=== PATIENT | female | born 1950 | race Caucasian/White ===

== ENCOUNTER → 2016-12-12 | Outpatient (CLI) | payer OTHER ==
[~2016-12-12] VITALS: Ht 152.4 cm; Wt 77.1 kg
[~2016-12-12] MED LIST: ACETAMINOPHEN325 M1 PO; ADVAIR HFA 115-12 GM INH; AKWA TEARS EYE15 ML OPHTHALMIC; ALBUTEROL INHALER INH; ASPIRIN325 PO; COUMADIN 5 MG TA5 M1 PO; CYCLOBENZAPRINE10 MG PO; DUONEB 2.5-0.5 M3 ML INH; HYDROCODON-ACE1 EACH PO; LEVAQUIN 750 M750 MG PO; LEVOTHYROXIN0.025 MG PO; LEVOTHYROXIN0.075 MG PO; NAPROSYN500 MG PO; PREDNISONE 10 M10 M1 PO; PREDNISONE 20 M20 M1 PO; PROAIR HFA8.5 GM INH; PROZAC 20 MG20 MG PO; TUCKS HEMORRH28.3 GM TOP; ULTRAM 50MG TAB50 MG PO; ZOLOFT25 MG PO
--- NOTE | ~2016-12-12 | S ---
[facility] [place] [address] SURGICAL PATH RPT PROCEDURE Name: MALICK PEARL Room #: REG RONDA JeromeLindsayAnilLindsay#: [id number] Admission: 12/12/16 Date of : 52 Discharge: Report #: [id number] Path Case #: [id number] PATHOLOGY REPORT COLLECTION DATE: 12/12/2016 RECEIVED DATE: 12/12/2016 SUBMITTING PHYS: Dr. Harinder Ramirez OTHER PHYS: Dr. Steff Brenner SPECIMEN(S) RECEIVED: A.Left lung biopsy * * * * * * * * * * * * FINAL DIAGNOSIS: Lung, left lung, biopsy: - MODERATELY DIFFERENTIATED SQUAMOUS CELL CARCINOMA. COMMENT: Immunohistochemical stains are performed: (Block A1) P40 strong nuclear reactivity present within the tumor TTF1 no tumor cells showing nuclear reactivity The immunohistochemical stains support the diagnosis rendered. Co-review: Dr. Ita Melo Findings are telephoned to Dr. Alexsander Galvin' nurse, Ms. Murillo at 1:09 pm on 12/15/16. (IUV:all; d/t: 12/15/2016) PATHOLOGIST: Ana Rosa Neely M.D. REPORT ELECTRONICALLY SIGNED BY: Ana Rosa Neely M.D. DATE/TIME: 12/15/2016 15:03 * * * * * * * * * * * * GROSS PATHOLOGY: The specimen is received in formalin, labeled "[place] Malick" and additionally labeled "left lung biopsy" on the requisition. Received is a 0.5 x 0.4 x 0.2 cm aggregate of blood tinged, white-corrales, rubbery, and irregular soft tissue fragments. The specimen is entirely submitted in cassette A1. (TTL; 12/12/2016) CLINICAL HISTORY: None given INITIAL CPT CODE(S): [facility] [place] [address] SURGICAL PATH RPT PROCEDURE Name: BEREAnilMALICK MITCHELL Room #: REG RONDA Lemus#: [id number] Admission: 12/12/16 Date of : 52 Discharge: Report #: [id number] Path Case #: [id number]; [id number], [id number], [id number] Professional services performed by [facility] at [address] [place] [address] Technical services performed by [facility] at [address] [place] [address], [place] [address]. [facility] [place] [address] PHONE: [phone] DIRECTOR: Amol Mullins M.D. * * * END OF REPORT * * *
[2016-12-12 08:39] VITALS: BP 110/53
[2016-12-12 08:48] LABS: HEMATOCRIT 43.8 % (37.0-47.0); HEMOGLOBIN 14.1 gm/dL (12.0-15.0); MCH 27.6 pg (26.0-34.0); MCHC 32.2 % (28.0-37.0); MCV 85.9 fL (80.0-100.0); RBC 5.09 mil/uL (4.20-5.00); RDW 14.1 % (10.5-14.5); WBC 6.5 thou/uL (4.0-11.0)
[2016-12-12 08:54] LABS: CALCIUM 8.9 mg/dL (8.5-10.1); CREATININE 0.6 mg/dL (0.6-1.3); POTASSIUM 4.3 mmol/L (3.5-5.1)
[2016-12-12 11:51] VITALS: BP 110/53
[2016-12-12 12:15] VITALS: BP 113/57
[2016-12-12 12:30] VITALS: BP 102/40
[2016-12-12 12:45] VITALS: BP 108/42
== END ==
LOC: CAT 07:41
PROVIDERS: Radiology Vascular & Interventional Radiology
DX: C34.12 Malignant neoplasm of upper lobe, left bronchus or lung (principal)

== ENCOUNTER 2017-07-25 16:13 | Inpatient (IN) | payer OTHER ==
[~2017-07-25] VITALS: Ht 154.9 cm; Wt 76.4 kg
--- NOTE | ~2017-07-25 | D ---
[facility] [place] [address] DISCHARGE SUMMARY Name: MALICK PEARL Room #: 453-P ADM IN M.R.#: [id number] Admission: 07/25/17 Attend Phys: Giovani Castro DO Discharge: Date of : 52 Report #: [id number] THIS REPORT FOR: //name// CC: Maria Castro DATE OF SERVICE: 08/02/2017 DATE OF ADMISSION: 07/25/2017 DATE OF DISCHARGE: 08/02/2017 HISTORY OF PRESENT ILLNESS: The patient is a 67-year-old female with history of severe COPD, oxygen dependent, and chronic respiratory failure who came to the Emergency Room with progressively worsening shortness of breath. Please refer to admission H and P for details. The patient was found to have hypercapnia. HOSPITALIZATION COURSE: The patient was hospitalized. She was started on antibiotics, as well as IV steroids and breathing treatments. Cone Operator was consulted. Initially, the patient was treated with BiPAP that was tapered off. The patient had very slow improvement. Currently, the patient is close to baseline. She is using oxygen between 3 and 4 liters. She feels much better. Cough has improved, as well as sputum production. Her physical examination is acceptable as documented in the patient's chart. DISCHARGE DIAGNOSES: Severe chronic obstructive pulmonary disease exacerbation, acute on chronic respiratory failure, resolving. Currently at baseline. SECONDARY DIAGNOSES: Severe chronic obstructive pulmonary disease, oxygen dependent, chronic respiratory failure, history of lung cancer, status post external radiation treatment, hypothyroidism, tobacco abuse. DISCHARGE MEDICATIONS: Please refer to the medication reconciliation list. DISPOSITION: The patient is discharged home. FOLLOWUP: 1. Follow up with the electrical continuity tester in 1-2 weeks. 2. Follow up with the primary care physician in 1-2 weeks. By: 1242 1408 Marylou Freire MD /nt
--- NOTE | ~2017-07-25 | EKG ---
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 : 1950 Requested By: Lakisha Garibay Order Number: [id number] MD: Irineo Degroot Measurements Intervals [place] Rate: 76 P: 69 DE: 128 QRS: 74 QRSD: 82 T: 69 QT: 370 QTc: 417 Interpretive Statements Sinus rhythm Poor R wave progression Compared to ECG 01/02/2013 10:49:26 Low QRS voltage now present Sinus tachycardia no longer present Electronically Signed On 07-27-2017 13:37:54 CDT by Irineo Degroot [email or web address] <ELECTRONICALLY SIGNED> By: Irineo Degroot MD, [facility] 07/27/17 1337 1638 163 Irineo Degroot MD, [facility] /EPI
--- NOTE | ~2017-07-25 | HC ---
[facility] [place] [address] CONSULTATION Name: MALICK PEARL Room #: 453-P [facility] IN M.R.#: [id number] Admission: 07/25/17 Attend Phys: Giovani Castro, Discharge: 08/02/17 Date of : 52 Report #: [id number] THIS REPORT FOR: //name// CC: Maria Castro DATE OF SERVICE: 07/26/2017 REFERRING PROVIDER: Dr. Giovani Castro. REASON FOR EVALUATION: COPD exacerbation, hypercapnic respiratory failure. HISTORY OF PRESENT ILLNESS: Our group was asked to see the patient in consultation while hospitalized at [facility], well known to me from prior office and treatment. She has a known history of COPD and chronic hypoxemic respiratory failure with a known history of lung cancer status post radiation therapy in the right apex, has had some increasing shortness of breath over the last several days, some cough productive of yellow sputum. Denies any fevers or chills. The patient was somewhat not complaining at home oxygen therapy. The patient is very somnolent this morning, had been somnolent on presentation to the Emergency Room yesterday afternoon; found to be in hypercapnic respiratory failure with markedly elevated pCO2. Overnight, she was placed on noninvasive positive pressure ventilation with BiPAP, seen by me this morning, was found to be with worsening hypercapnia despite BiPAP; however, the patient did not appear to be synchronizing well. The current BiPAP setting was changed to volume assured pressure support ventilation Follow up arterial blood gas pending at this time. Currently, resting comfortably in bed, although somewhat somnolent, no distress. ALLERGIES: EGGS. PAST MEDICAL HISTORY: 1. History of severe COPD. 2. History of prior pulmonary embolism. 3. Lung cancer. 4. Depression. 5. Hypothyroidism. OUTPATIENT MEDICATIONS: Include Advair, ProAir, and DuoNeb as well as supplemental oxygen. SOCIAL HISTORY: Active smoker unfortunately, no significant alcohol consumption. Has been employed by a [employer] service. FAMILY HISTORY: Unobtainable at this time due to diminished level of conscious. [facility] [address] [place] [address] CONSULTATION Name: HOMERMALICK MITCHELL Room #: 453-P [facility] IN M.R.#: [id number] Admission: 07/25/17 Attend Phys: Giovani Castro DO Discharge: 08/02/17 Date of : 52 Report #: [id number] REVIEW OF SYSTEMS: Unobtainable, otherwise as described in HPI due to changes in mental status. PHYSICAL EXAMINATION: VITAL SIGNS: Afebrile, pulse 70s, respiratory rate 16, blood pressure 109/57, oxygen saturation 94%. Evaluation was done on BiPAP of 08/05 with an FiO2 of 50%. GENERAL: This is a pleasant elderly woman, somnolent, but arousable, no distress. BiPAP in place. LUNGS: Coarse expiratory rhonchi heard throughout. CARDIOVASCULAR: Heart regular. No murmurs or gallops appreciated. ABDOMEN: Soft, nontender, no masses. EXTREMITIES: Without significant edema. They are warm with 2+ pulses. LABORATORY DATA: Chest x-ray revealed hyperinflation with some thickening of the right apex noted. CBC within normal limits. Chemistry profile revealed sodium 133, potassium 4.5, chloride 97, bicarbonate 37, BUN 6, creatinine 0.6, glucose 110. ProBNP 523. Most recent blood gas revealed pH 7.20, pCO2 of 102, pO2 of 78, similar to previous blood gases, although there has been an increasing PaCO2 noted. IMPRESSION: 1. Hypercapnic respiratory failure, wibvt-kk-fzkspez. 2. Alkso-nh-bpruvtq hypoxemic respiratory failure. 3. Chronic obstructive pulmonary disease with acute exacerbation. 4. History of lung cancer. 5. Ongoing tobacco use. 6. Probable lower respiratory infection. 7. History of depression. 8. History of hypothyroidism. SUGGESTIONS: 1. Check TSH. 2. Continue with BiPAP in volume assured pressure support mode for now and await arterial blood gas for reevaluation. 3. Systemic steroid with taper. 4. Bronchodilators. 5. Continue with Levaquin. 6. Await blood and sputum cultures. 7. May need more aggressive care in ICU, on mechanical ventilatory support, will need a continually monitor. 8. Minimize FIO2, tolerating an oxygen saturation to 88.0% given her ____ hypercapnia. 9. Additional recommendations to follow. [address] [address] CONSULTATION Name: HOMERMALICK Room #: 453-P [facility] IN M.R.#: [id number] Admission: 07/25/17 Attend Phys: Giovani Castro, DO Discharge: 08/02/17 Date of : 52 Report #: [id number] Thank you for requesting our suggestions. <ELECTRONICALLY SIGNED> By: Alexsander Galvin MD 08/06/17 1304 1127 1925 Alexsander Galvin MD /nt
[2017-07-25 16:14] VITALS: BP 124/61
[2017-07-25 16:45] LABS: HEMATOCRIT 43.9 % (37.0-47.0); HEMOGLOBIN 14.1 gm/dL (12.0-15.0); MCH 27.9 pg (26.0-34.0); MCHC 32.2 g/dL (28.0-37.0); MCV 86.6 fL (80.0-100.0); PLATELET COUNT 195 thou/uL (150-400); RBC 5.07 mil/uL (4.20-5.00); RDW 14.4 % (10.5-14.5); WBC 5.6 thou/uL (4.0-11.0)
[2017-07-25 16:47] LABS: MANUAL DIFF YES
[2017-07-25 17:02] LABS: ABG SAMPLE TYPE ARTERIAL; BE(vivo) 1.1 mmol/L (-2 to +3); HCO3 32.4 mmol/L (22.0-26.0); LACTATE 0.61 mmol/L (0.5-2.0); O2(CT) 20.3 mL/dL (15.0-23.0); O2Hb 94.5 % (92.0-98.0); PCO2 86.8 mmHg (35.0-45.0); PO2 105.7 mmHg (80.0-100.0); STICK SITE L.RADIAL; sO2 96.3 % (92.0-98.0); tCO2 35.1 mmol/L (24.0-30.0)
[2017-07-25 17:05] LABS: ANION GAP 1 mmol/L (7-16); BUN 6 mg/dL (7-18); CALCIUM 8.7 mg/dL (8.5-10.1); CHLORIDE 95 mmol/L (98-107); CO2 37 mmol/L (21-32); CREATININE 0.6 mg/dL (0.6-1.0); GLUCOSE 110 mg/dL (74-106); POTASSIUM 4.5 mmol/L (3.5-5.1); SODIUM 133 mmol/L (136-145)
[2017-07-25 17:06] LABS: ABSOLUTE NEUTROPHILS 4.3 thou/uL (1.4-8.2); TOTAL CELL COUNT 100
[2017-07-25 17:10] LABS: ALBUMIN 3.6 g/dL (3.4-5.0); ALKALINE PHOSPHATASE 86 U/L (46-116); SGOT 24 U/L (15-37); SGPT 19 U/L (30-65); TOTAL BILIRUBIN 0.3 mg/dL (<0.1-1.0); TOTAL PROTEIN 7.6 g/dL (6.4-8.2); TROPONIN-I < 0.04 ng/mL (<0.04-0.07)
[2017-07-25 17:34] LABS: URINE BILIRUBIN NEGATIVE (Negative); URINE BLOOD NEGATIVE (Negative); URINE COLOR YELLOW; URINE GLUCOSE-RANDOM* NEGATIVE (Negative); URINE KETONES NEGATIVE (Negative); URINE NITRITE NEGATIVE (Negative); URINE PROTEIN (DIPSTICK) NEGATIVE (Negative); URINE UROBILINOGEN 0.2 E.U./dl (0.2-1.0)
[2017-07-25 19:40] VITALS: BP 125/70
[2017-07-25 21:07] LABS: ABG SAMPLE TYPE ARTERIAL; BE(vivo) 1.2 mmol/L (-2 to +3); HCO3 32.3 mmol/L (22.0-26.0); LACTATE 1.03 mmol/L (0.5-2.0); O2(CT) 20.2 mL/dL (15.0-23.0); PO2 76.8 mmHg (80.0-100.0); sO2 91.6 % (92.0-98.0); tCO2 34.9 mmol/L (24.0-30.0)
[2017-07-25 21:09] LABS: FIO2 50 %; PCO2 84.4 mmHg (35.0-45.0)
[2017-07-25 21:11] LABS: STICK SITE L.RADIAL
[2017-07-26] VITALS (18 sets, daily range): BP systolic 102–128; BP diastolic 51–67
[2017-07-26 05:52] LABS: ABG SAMPLE TYPE ARTERIAL; BE(vivo) 6.6 mmol/L (-2 to +3); LACTATE 0.88 mmol/L (0.5-2.0); O2(CT) 19.9 mL/dL (15.0-23.0); O2Hb 93.4 % (92.0-98.0); PO2 78.5 mmHg (80.0-100.0); sO2 91.7 % (92.0-98.0); tCO2 42.1 mmol/L (24.0-30.0)
[2017-07-26 05:53] LABS: pH 7.202 (7.360-7.450)
[2017-07-26 05:55] LABS: PCO2 101.5 mmHg (35.0-45.0); STICK SITE R.RADIAL
[2017-07-26 05:56] LABS: FIO2 50 %; TIDAL VOLUME 1115 ml
[2017-07-26 23:06] LABS: ABG SAMPLE TYPE ARTERIAL; BE(vivo) 12.8 mmol/L (-2 to +3); LACTATE 0.97 mmol/L (0.5-2.0); O2(CT) 19.3 mL/dL (15.0-23.0); O2Hb 90.6 % (92.0-98.0); PCO2 91.5 mmHg (35.0-45.0); STICK SITE RRA; sO2 88.8 % (92.0-98.0); tCO2 46.8 mmol/L (24.0-30.0)
[2017-07-26 23:07] LABS: TIDAL VOLUME 500 ml
[2017-07-27] VITALS (20 sets, daily range): BP systolic 102–128; BP diastolic 46–67
[2017-07-27 03:44] LABS: HEMATOCRIT 45.1 % (37.0-47.0); HEMOGLOBIN 14.1 gm/dL (12.0-15.0); MCH 27.5 pg (26.0-34.0); MCHC 31.1 g/dL (28.0-37.0); MCV 88.3 fL (80.0-100.0); PLATELET COUNT 186 thou/uL (150-400); RBC 5.11 mil/uL (4.20-5.00); RDW 14.2 % (10.5-14.5); WBC 3.6 thou/uL (4.0-11.0)
[2017-07-27 03:48] LABS: MANUAL DIFF YES
[2017-07-27 03:54] LABS: ALBUMIN 3.3 g/dL (3.4-5.0); ALKALINE PHOSPHATASE 70 U/L (46-116); ANION GAP < 0 mmol/L (7-16); BUN 13 mg/dL (7-18); CHLORIDE 92 mmol/L (98-107); CO2 41 mmol/L (21-32); CREATININE 0.6 mg/dL (0.6-1.0); GLUCOSE 122 mg/dL (74-106); MAGNESIUM 2.2 mg/dL (1.8-2.4); POTASSIUM 5.3 mmol/L (3.5-5.1); SGOT 22 U/L (15-37); SGPT 17 U/L (30-65); SODIUM 132 mmol/L (136-145); TOTAL BILIRUBIN 0.3 mg/dL (<0.1-1.0); TOTAL PROTEIN 7.2 g/dL (6.4-8.2)
[2017-07-27 05:44] LABS: ABG SAMPLE TYPE ARTERIAL; BE(vivo) 12.6 mmol/L (-2 to +3); HCO3 42.2 mmol/L (22.0-26.0); LACTATE 1.05 mmol/L (0.5-2.0); O2(CT) 19.1 mL/dL (15.0-23.0); O2Hb 92.9 % (92.0-98.0); PO2 69.5 mmHg (80.0-100.0); pH 7.343 (7.360-7.450); sO2 92.1 % (92.0-98.0); tCO2 44.7 mmol/L (24.0-30.0)
[2017-07-27 05:45] LABS: PCO2 79.5 mmHg (35.0-45.0); STICK SITE RRA
[2017-07-27 05:46] LABS: TIDAL VOLUME 500 ml
[2017-07-27 06:03] LABS: ABSOLUTE NEUTROPHILS 3.1 thou/uL (1.4-8.2); TOTAL CELL COUNT 100
[2017-07-28] VITALS (7 sets, daily range): BP systolic 101–131; BP diastolic 53–65
[2017-07-28 04:16] LABS: ANION GAP < 0 mmol/L (7-16); BUN 17 mg/dL (7-18); CALCIUM 8.5 mg/dL (8.5-10.1); CHLORIDE 90 mmol/L (98-107); CO2 39 mmol/L (21-32); CREATININE 0.6 mg/dL (0.6-1.0); GLUCOSE 133 mg/dL (74-106); POTASSIUM 4.8 mmol/L (3.5-5.1); SODIUM 128 mmol/L (136-145)
[2017-07-29 00:23] VITALS: BP 117/45
[2017-07-29 04:25] VITALS: BP 103/43
[2017-07-29 07:47] VITALS: BP 112/54
[2017-07-29 11:24] VITALS: BP 127/61
[2017-07-29 16:02] VITALS: BP 114/61
[2017-07-29 19:36] VITALS: BP 109/61
[2017-07-30 04:05] VITALS: BP 121/61
[2017-07-30 06:25] LABS: ABSOLUTE NEUTROPHILS 4.7 thou/uL (1.4-8.2); BASOPHILS 0.2 % (0.0-2.0); EOSINOPHILS 0.2 % (0.0-3.0); HEMATOCRIT 43.9 % (37.0-47.0); HEMOGLOBIN 13.8 gm/dL (12.0-15.0); LYMPHOCYTES 15.6 % (24.0-44.0); MCH 27.6 pg (26.0-34.0); MCHC 31.5 g/dL (28.0-37.0); MCV 87.5 fL (80.0-100.0); MONOCYTES 11.1 % (1.0-8.0); PLATELET COUNT 183 thou/uL (150-400); POLYS 72.9 % (36.0-66.0); RBC 5.01 mil/uL (4.20-5.00); RDW 14.4 % (10.5-14.5); WBC 6.4 thou/uL (4.0-11.0)
[2017-07-30 06:29] LABS: MANUAL DIFF NO
[2017-07-30 06:34] LABS: ANION GAP < 0 mmol/L (7-16); BUN 13 mg/dL (7-18); CALCIUM 8.8 mg/dL (8.5-10.1); CHLORIDE 96 mmol/L (98-107); CREATININE 0.6 mg/dL (0.6-1.0); GLUCOSE 85 mg/dL (74-106); POTASSIUM 4.3 mmol/L (3.5-5.1); SODIUM 137 mmol/L (136-145)
[2017-07-30 06:43] LABS: CO2 45 mmol/L (21-32)
[2017-07-30 07:40] VITALS: BP 111/57
[2017-07-30 13:05] VITALS: BP 115/50
[2017-07-30 16:50] VITALS: BP 112/47
[2017-07-30 19:02] VITALS: BP 109/49
[2017-07-30 23:07] LABS: INFLUENZA B Negative (Negative); METAPNEUMOVIRUS Negative (Negative)
[2017-07-31 04:05] VITALS: BP 117/49
[2017-07-31 06:07] LABS: HEMATOCRIT 45.6 % (37.0-47.0); HEMOGLOBIN 14.4 gm/dL (12.0-15.0); MCH 27.7 pg (26.0-34.0); MCHC 31.5 g/dL (28.0-37.0); MCV 87.9 fL (80.0-100.0); PLATELET COUNT 181 thou/uL (150-400); RBC 5.18 mil/uL (4.20-5.00); RDW 14.6 % (10.5-14.5); WBC 6.4 thou/uL (4.0-11.0)
[2017-07-31 06:08] LABS: MANUAL DIFF YES
[2017-07-31 06:24] LABS: ALBUMIN 3.3 g/dL (3.4-5.0); CALCIUM 8.8 mg/dL (8.5-10.1); CREATININE 0.5 mg/dL (0.6-1.0); MAGNESIUM 2.3 mg/dL (1.8-2.4); POTASSIUM 5.1 mmol/L (3.5-5.1); TOTAL BILIRUBIN 0.5 mg/dL (<0.1-1.0); TOTAL PROTEIN 6.9 g/dL (6.4-8.2)
[2017-07-31 07:23] VITALS: BP 101/54
[2017-07-31 08:00] LABS: ABSOLUTE NEUTROPHILS 5.1 thou/uL (1.4-8.2); ATYPICAL LYMPHS 3 %; TOTAL CELL COUNT 100
[2017-07-31 08:01] LABS: ANISOCYTOSIS 1+
[2017-07-31 11:13] VITALS: BP 109/50
[2017-07-31 15:05] VITALS: BP 111/53
[2017-07-31 19:20] VITALS: BP 114/51
[2017-08-01 03:20] VITALS: BP 116/47
[2017-08-01 03:46] LABS: ABSOLUTE NEUTROPHILS 6.9 thou/uL (1.4-8.2); BASOPHILS 0.2 % (0.0-2.0); EOSINOPHILS 0.1 % (0.0-3.0); HEMATOCRIT 46.6 % (37.0-47.0); HEMOGLOBIN 14.4 gm/dL (12.0-15.0); LYMPHOCYTES 6.2 % (24.0-44.0); MCH 27.1 pg (26.0-34.0); MCHC 30.9 g/dL (28.0-37.0); MCV 87.7 fL (80.0-100.0); MONOCYTES 3.3 % (1.0-8.0); PLATELET COUNT 201 thou/uL (150-400); POLYS 90.2 % (36.0-66.0); RBC 5.31 mil/uL (4.20-5.00); RDW 14.5 % (10.5-14.5); WBC 7.7 thou/uL (4.0-11.0)
[2017-08-01 03:59] LABS: MANUAL DIFF NO
[2017-08-01 04:03] LABS: ALBUMIN 3.3 g/dL (3.4-5.0); CALCIUM 8.5 mg/dL (8.5-10.1); CREATININE 0.6 mg/dL (0.6-1.0); MAGNESIUM 2.2 mg/dL (1.8-2.4); POTASSIUM 5.4 mmol/L (3.5-5.1); TOTAL BILIRUBIN 0.6 mg/dL (<0.1-1.0); TOTAL PROTEIN 7.2 g/dL (6.4-8.2)
[2017-08-01 07:27] VITALS: BP 112/50
[2017-08-01 11:11] VITALS: BP 112/60
[2017-08-01 13:58] LABS: % SATURATION 45 % (20-39); IRON 131 ug/dL (50-170); TIBC 288 ug/dL (250-450); UIBC 157 ug/dL
[2017-08-01 15:19] VITALS: BP 121/53
[2017-08-01 19:42] VITALS: BP 135/53
[2017-08-02 04:33] VITALS: BP 111/49
[2017-08-02 06:35] LABS: CALCIUM 8.6 mg/dL (8.5-10.1); CREATININE 0.7 mg/dL (0.6-1.0); POTASSIUM 5.3 mmol/L (3.5-5.1)
[2017-08-02 08:07] VITALS: BP 120/55
[2017-08-02] MEDS ORDERED: MUCINEX600 MG PO (12:47)
[2017-08-02] MEDS ORDERED: PREDNISONE 10 M10 MG PO (12:47)
[2017-08-02 12:50] VITALS: BP 120/55
[2017-08-02 13:59] VITALS: BP 125/62
== END 2017-08-02 14:37 | disposition home or self-care (01) | DRG 871 ==
LOC: ER 16:13 → EROBS 17:38 → ICU 17:38 → 4W 18:24 → ICU 07-26 11:56 → 4W 07-28 18:17
PROVIDERS: Internal Medicine Endocrinology, Diabetes & Metabolism; Internal Medicine Geriatric Medicine; Internal Medicine Pulmonary Disease; Nurse Practitioner; Nurse Practitioner Family
PROC: 5A09457 Assistance with Respiratory Ventilation, 24-96 Consecutive Hours, Continuous Positive Airway Pressure (ICD-10-PCS; principal; 2017-07-25)
DX: A41.9 Sepsis, unspecified organism (principal); J96.22 Acute and chronic respiratory failure with hypercapnia; J44.1 Chronic obstructive pulmonary disease with (acute) exacerbation; E87.0 Hyperosmolality and hypernatremia; C91.10 Chronic lymphocytic leukemia of B-cell type not having achieved remission; E03.9 Hypothyroidism, unspecified; F17.210 Nicotine dependence, cigarettes, uncomplicated; G47.33 Obstructive sleep apnea (adult) (pediatric); E87.5 Hyperkalemia; D64.9 Anemia, unspecified; F32.9 Major depressive disorder, single episode, unspecified; K59.00 Constipation, unspecified; G25.81 Restless legs syndrome; Z91.012 Allergy to eggs; Z79.899 Other long term (current) drug therapy; Z86.711 Personal history of pulmonary embolism; Z85.118 Personal history of other malignant neoplasm of bronchus and lung; Z99.81 Dependence on supplemental oxygen
CPT/HCPCS: 10045; 10078

== ENCOUNTER → 2017-08-11 | Outpatient (CLI) | payer OTHER ==
[~2017-08-11] MED LIST changes: +MUCINEX600 MG PO; +PREDNISONE 10 M10 MG PO
[2017-08-11 15:32] LABS: ABG SAMPLE TYPE ARTERIAL; BE(vivo) 5.4 mmol/L (-2 to +3); HCO3 33.5 mmol/L (22.0-26.0); LACTATE 0.88 mmol/L (0.5-2.0); O2(CT) 19.5 mL/dL (15.0-23.0); PCO2 64.2 mmHg (35.0-45.0); PO2 86.1 mmHg (80.0-100.0); pH 7.336 (7.360-7.450); sO2 95.7 % (92.0-98.0); tCO2 35.5 mmol/L (24.0-30.0)
[2017-08-11 15:33] LABS: STICK SITE R.RADIAL
== END ==
LOC: PUL 15:01
PROVIDERS: Internal Medicine Pulmonary Disease
DX: J96.11 Chronic respiratory failure with hypoxia (principal)

== ENCOUNTER → 2017-11-20 | Outpatient (CLI) | payer OTHER ==
[~2017-11-20] MED LIST changes: +ALEVE220 MG PO; +ALPRAZOLAM 0.50.5 M1 PO; +ATENOLOL 25 MG25 M1 PO; +AUGMENTIN 500-1 EACH PO; +CLEOCIN HCL150 MG PO; +FENTANYL1 EAC1 TRANSDERM; +GLUCOPHAGE XR500 MG PO; +METFORMIN HCL500 MG PO; +MIRALAX17 GM PO; +NORCO 5-325 TA1 EACH PO; +OXYCODONE HCL10 MG PO; +PACERONE 200 M200 M1 PO; +SENNA-TIME S T1 EACH PO; +STIOLTO RESPIMAT4 GM INH; +SYNTHROID75 MCG PO
== END ==
LOC: PET 10:00
DX: C34.12 Malignant neoplasm of upper lobe, left bronchus or lung (principal)

== ENCOUNTER → 2018-04-27 | Outpatient (CLI) | payer OTHER ==
[~2018-04-27] VITALS: Ht 154.9 cm; Wt 70.3 kg
[~2018-04-27] MED LIST changes: -ALPRAZOLAM 0.50.5 M1 PO; -ATENOLOL 25 MG25 M1 PO; -AUGMENTIN 500-1 EACH PO; -CLEOCIN HCL150 MG PO; -FENTANYL1 EAC1 TRANSDERM; -GLUCOPHAGE XR500 MG PO; -MIRALAX17 GM PO; -OXYCODONE HCL10 MG PO; -PACERONE 200 M200 M1 PO; -SENNA-TIME S T1 EACH PO
[2018-04-27 10:54] LABS: APTT 34.1 Seconds (24.5-32.8); PROTIME 10.7 Seconds (9.3-11.4)
[2018-04-27 10:55] VITALS: BP 98/45
[2018-04-27 13:19] VITALS: BP 140/86
== END | disposition home or self-care (01) ==
LOC: SPEC 07:08
PROVIDERS: Radiology Diagnostic Radiology
DX: Z45.2 Encounter for adjustment and management of vascular access device (principal); C34.12 Malignant neoplasm of upper lobe, left bronchus or lung; E11.9 Type 2 diabetes mellitus without complications; J44.9 Chronic obstructive pulmonary disease, unspecified; E03.9 Hypothyroidism, unspecified; F32.9 Major depressive disorder, single episode, unspecified; F17.210 Nicotine dependence, cigarettes, uncomplicated; Z98.890 Other specified postprocedural states; Z79.899 Other long term (current) drug therapy; Z79.01 Long term (current) use of anticoagulants; Z79.891 Long term (current) use of opiate analgesic

== ENCOUNTER 2018-06-01 10:53 | Inpatient (IN) | payer OTHER ==
[~2018-06-01] VITALS: Ht 154.9 cm; Wt 65.3 kg
--- NOTE | ~2018-06-01 | PATH ---
[facility] [address] [place] [address] PATHOLOGY RPT PROCEDURE Name: BERERMALICK Room #: 354-P ADM IN M.R.#: [id number] Admission: 06/01/18 Date of : 52 Discharge: Report #: [id number] Path Case #: [id number] Note [facility] Accession Number: [id number] TESTS RESULT FLAG UNITS REF RANGE LAB Clinician Provided Cytology Information No. of containers..01 Other (Miscellaneous) Source: BAL-LLL DIAGNOSIS: BAL-LLL NEGATIVE FOR MALIGNANT CELLS. SCANT CELLULARITY. Signed out by: 02 Rian Degroot MD, Pathologist NPI- [id number] Performed by: 03 Jaylene Knox, Equipment Maintenance Supervisor ([facility]) Gross description: 01 15ML, RED, CLOUDY /LCS FLAG LEGEND: L-Low Normal,H-High Normal,LL-Alert Low,HH-Alert High <-Panic Low,>-Panic High,A-Abnormal,AA-Critical Abnormal Performed at: [address] [place] [address] Carlos Miguel MD, [address] [address] Ana Rosa Neely MD, [address] [address] Amol Mullins MD, Performed at: [address], [place], [place] [id number] MD Carlos Miguel MD Phone: [phone]
--- NOTE | ~2018-06-01 | HC ---
[facility] [place] [address] CONSULTATION Name: MALICK PEARL Room #: 354-P ADM IN M.R.#: [id number] Admission: 06/01/18 Attend Phys: Alexsander Galvin MD Discharge: Date of : 52 Report #: [id number] THIS REPORT FOR: //name// CC: Maria Galvin MD REASON FOR CONSULTATION: The patient has a history of non-small cell lung cancer, thought to be locally recurrent, had been started on chemotherapy, but has recently had out of the hospital fever and cough, worrisome for progressive postobstructive pneumonia. HISTORY OF PRESENT ILLNESS: I received a call yesterday from Dr. Alexsander Galvin and he was admitting the patient for bronchoscopy. On the bronchoscopy late yesterday he found some very friable tissue in the airway, cytology and cultures are pending. The patient thinks she may be breathing a bit better. The patient denied headache, did have a low grade fever, though she did not measure it. No real chills. Has had a slightly productive cough. No constipation, maybe a little bit of diarrhea, no skin rash. No dysuria. Does have persistent left breast pain that has been going on for several months; I think it is related to probably rib invasion. No arm or leg swelling. PAST MEDICAL HISTORY: Notable for the history of the non-small cell lung cancer originally diagnosed with a right upper lobe squamous cell carcinoma in 2013, completed radiation therapy on 03/28/2014. 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 She completed sterotactic radiation therapy on 02/02/2017. Scans in fall showed progressive changes and the left mass extending to the pleural surface. A CAT scan at on 02/19/2018 showed full extension to the left major fissure as well as to the left chest wall and involvement of the left 5th and 6th ribs, also interval worsening in the right lung mass and some mediastinal lymph nodes. The patient has been tested and is negative for the BRAF, ALK, ROS and EGFR mutation and PD-L1 has low expression. The patient began carboplatin, Gemzar on 04/29/2018. Also, has a history of iron deficiency anemia in the past, received Injectafer in 04/2018. Also has diabetes mellitus type 2, COPD history, history of pulmonary embolus in the past, history of depression, history of hypothyroidism, also degenerative joint disease. FAMILY HISTORY: Sister had thyroid cancer. Mother had cancer, unclear type of the bone. Brother has CAD, had history of cancer and also exposure to asbestos. PAST SURGICAL HISTORY: Has had the lung biopsies. SOCIAL HISTORY: Current smoker daily, alcohol none. 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 [address] CONSULTATION Name: MALICK PEARL Room #: 354-P ADM IN M.R.#: [id number] Admission: 06/01/18 Attend Phys: Alexsander Galvin MD Discharge: Date of : 52 Report #: [id number] MEDICATIONS: Ipratropium/albuterol 3 mL respiratory therapy q.4, linezolid b.i.d., meropenem 500 mg q.8, methylprednisolone 62.5 mg IV q.12. PHYSICAL EXAMINATION: VITAL SIGNS: Height 5 feet 1 inch, 154.9 cm; weight 102 pounds, 46.4 kg. Blood pressure is 117/60, O2 sat 97, respirations 17, pulse 78, temperature 97.8. GENERAL: The patient appears her stated age. She is alert and oriented x 3. LUNGS: Mostly clear. There is some soft rhonchi that cleared with cough. HEART: Regular rate. LYMPHS: No enlarged lymph nodes in the supraclavicular, cervical, axillary or inguinal region. ABDOMEN: Obese, soft, without mass. EXTREMITIES: Without clubbing, cyanosis. ASSESSMENT AND PLAN: 1. Locally progressive non-small cell lung cancer, had been on chemotherapy. We will hold during hospitalization and await clarification of tumor progression versus possible coexistence of postobstructive pneumonia. 2. Postobstructive pneumonitis with fever. Continues on inhalers and antibiotics. Cultures are pending. 3. Chronic obstructive pulmonary disease, continues inhalers. 4. Hypothyroid, replace. 5. Arthritis. Continues pain medications. We will follow with you. <ELECTRONICALLY SIGNED> By: Jovany Whelan MD 06/02/18 1717 0931 1440 Jovany Whelan MD /nt
--- NOTE | ~2018-06-01 | HC ---
[facility] [place] [address] CONSULTATION Name: MALICK PEARL Room #: 354-P ADM IN M.R.#: [id number] Admission: 06/01/18 Attend Phys: Alexsander Galvin MD Discharge: Date of : 52 Report #: [id number] THIS REPORT FOR: //name// CC: Maria Galvin DATE OF SERVICE: 06/01/2018 ATTENDING PHYSICIAN: Alexsander Galvin MD. REASON FOR CONSULTATION: Antibiotic management. HISTORY OF PRESENT ILLNESS: The patient is a 68-year-old white woman admitted with history of pleuritic chest pain, cough and possible postobstructive pneumonia. The patient currently under the effects of recent sedation for bronchoscopy. Consequently, unable to give any significant medical information and most of the information is obtained from review of her records. PAST MEDICAL HISTORY: COPD. History of a bilateral lung cancers, originally the right lung upper lobe, squamous cell carcinoma, treated with radiation therapy. The patient subsequently is found to have a left-sided pulmonary cancer treated with Gemzar and carboplatin by Dr. Whelan. Chronic hypoxemia due to COPD, emphysema. Diabetes mellitus. DRUG ALLERGIES: None listed. MEDICATIONS: At home, she is on treatment with albuterol and Atrovent and albuterol inhalation treatments, p.r.n. hydrocodone, levothyroxine, metformin, naproxen, tiotropium inhalation treatments. SOCIAL HISTORY: Cigarette smoking. REVIEW OF SYSTEMS: Unable to obtain. PHYSICAL EXAMINATION: GENERAL: Chronically ill-appearing sedated woman. VITAL SIGNS: Pending. HEENMT: Within range. NECK: Supple, no thyromegaly. LUNGS: Few rhonchi, wheezes. HEART: S1, S2. No gallop. ABDOMEN: Soft, no masses or megaly. PELVIC AND RECTAL: Deferred. EXTREMITIES: No clubbing, cyanosis. LABORATORY DATA: Chest x-ray revealed stable right apical mass and left [facility] [address] [place] [address] CONSULTATION Name: BERERMALICK Room #: [address] [place] [address] [place] [facility].#: [id number] Admission: 06/01/18 Attend Phys: Alexsander Galvin MD Discharge: Date of : 52 Report #: [id number] suprahilar mass has increased in size since previous. CT scan of the chest is pending. ASSESSMENT: 1. Possible postobstructive pneumonia, left lung. 2. Sedation to recent bronchoscopy. 3. Metachronous lung cancers and radiation and chemotherapy. 4. Chronic obstructive pulmonary disease. 5. Diabetes mellitus. SUGGESTION: Recommend obtaining MRSA screen. We will cover the patient with combination of meropenem 500 mg IV every 8 hours and Zyvox 600 mg IV every 12 hours. We will finally tune antibiotic regimen when culture results available. Dr. Galvin, thank you for requesting my suggestion. <ELECTRONICALLY SIGNED> By: Gary Bowie MD 06/02/18 1142 1509 1938 Gary Bowie MD /ashley
--- NOTE | ~2018-06-01 | P ---
[facility] [place] [address] PROCEDURE REPORT Name: MALICK PEARL Room #: 354-P ADM IN M.R.#: [id number] Admission: 06/01/18 Attend Phys: Alexsander Galvin MD Discharge: Date of : 52 Report #: [id number] THIS REPORT FOR: //name// CC: Maria Galvin DATE OF SERVICE: 06/01/2018 PROCEDURE: Fiberoptic bronchoscopy with bronchial lavage in the left lower lobe. INDICATION: Persistent cavitary process or malignancy. ASA CLASSIFICATION: 3 PROCEDURE NOTATION: After discussing risks and benefits of planned procedure with the patient, she desired to proceed. After obtaining informed consent, she was brought to labor gang supervisor. She was placed on continuous cardiopulmonary monitoring and supplemental oxygen and 2% lidocaine nebulized to anesthetize the upper respiratory tract. Once accomplished, she received conscious sedation; total 4 mg of Versed was titrated during the procedure to provide adequate sedation. Bronchoscope was then passed through an oral biteblock until the vocal cords were visualized. Lidocaine 2% was instilled in the vocal cords to provide topical anesthesia. Bronchoscope was then passed in the trachea where 2% lidocaine was instilled in the tracheobronchial tree to provide topical anesthesia. Once complete, airways were surveyed. FINDINGS: Mainstem, lobar, segmental and subsegmental bronchi were all explored as best able. The findings included normal airways with the exception of left lower lobe bronchus, had significant narrowing that was very friable to the touch with the bronchoscope. It was unable to pass the bronchoscope more distally. No significant purulent secretions were noted. Lavage was performed in this area. Due to hypoxemia during the procedure, additional specimens were not collected. Lavage material was sent for cytology and microbiologic testing. The brief time of hypoxemia requiring high flow oxygen by mask tolerated well. No noted complications. IMPRESSION: Cavitary process, left lower lobe, consistent with either abscess lung or necrotic malignancy. RECOMMENDATIONS: Await cultures. Antibiotics per Infectious Disease Service. By: 1349 2238 Alexsander Galvin MD /nt
[2018-06-01 15:31] LABS: ABSOLUTE NEUTROPHILS 6.7 thou/uL (1.4-8.2); BASOPHILS 0.4 % (0.0-2.0); EOSINOPHILS 0.3 % (0.0-3.0); HEMATOCRIT 32.1 % (37.0-47.0); HEMOGLOBIN 10.2 gm/dL (12.0-15.0); LYMPHOCYTES 9.1 % (24.0-44.0); MCH 25.4 pg (26.0-34.0); MCHC 31.8 g/dL (28.0-37.0); MCV 79.8 fL (80.0-100.0); MONOCYTES 1.5 % (1.0-8.0); PLATELET COUNT 266 thou/uL (150-400); POLYS 88.7 % (36.0-66.0); RBC 4.02 mil/uL (4.20-5.00); RDW 16.6 % (10.5-14.5); WBC 7.5 thou/uL (4.0-11.0)
[2018-06-01 15:46] LABS: ALBUMIN 2.9 g/dL (3.4-5.0); CALCIUM 8.6 mg/dL (8.5-10.1); CREATININE 0.6 mg/dL (0.6-1.0); POTASSIUM 3.8 mmol/L (3.5-5.1); TOTAL BILIRUBIN 0.3 mg/dL (<0.1-1.0); TOTAL PROTEIN 7.2 g/dL (6.4-8.2)
[2018-06-01 17:27] VITALS: BP 121/57
[2018-06-01 19:38] VITALS: BP 116/64
[2018-06-01 23:00] VITALS: BP 113/62
[2018-06-02 03:25] VITALS: BP 110/60
[2018-06-02 07:39] VITALS: BP 117/60
[2018-06-02] MEDS ORDERED: GLUCOPHAGE XR500 MG PO (09:28)
[2018-06-02 11:22] VITALS: BP 109/61
[2018-06-02 15:35] VITALS: BP 114/48
[2018-06-02 20:10] VITALS: BP 128/59
[2018-06-03 04:31] VITALS: BP 113/55
[2018-06-03 06:36] LABS: CALCIUM 8.4 mg/dL (8.5-10.1); CREATININE 0.7 mg/dL (0.6-1.0); MAGNESIUM 1.8 mg/dL (1.8-2.4); POTASSIUM 4.6 mmol/L (3.5-5.1)
[2018-06-03 08:44] VITALS: BP 126/61
[2018-06-03 12:16] VITALS: BP 123/58
[2018-06-03 17:17] VITALS: BP 120/63
[2018-06-03 21:00] VITALS: BP 144/66
[2018-06-04 03:52] VITALS: BP 124/61
[2018-06-04 07:53] VITALS: BP 127/62
[2018-06-04 11:43] VITALS: BP 110/57
[2018-06-04 16:03] VITALS: BP 138/64
[2018-06-04 19:25] VITALS: BP 128/58
[2018-06-05 03:30] VITALS: BP 117/60
[2018-06-05 07:25] VITALS: BP 116/57
[2018-06-05 15:58] VITALS: BP 121/67
[2018-06-05 20:00] VITALS: BP 116/62
[2018-06-06 08:14] VITALS: BP 141/83
[2018-06-06 21:17] VITALS: BP 106/53
[2018-06-07 08:32] VITALS: BP 129/75
[2018-06-07 20:03] VITALS: BP 113/63
[2018-06-08 07:30] VITALS: BP 107/64
[2018-06-08 19:56] VITALS: BP 110/59
[2018-06-09 08:00] VITALS: BP 120/71
[2018-06-09] MEDS ORDERED: MIRALAX17 GM PO (10:49)
[2018-06-09] MEDS ORDERED: CLEOCIN HCL150 MG PO (10:49)
[2018-06-09] MEDS ORDERED: SENNA-TIME S T1 EACH PO (10:49)
[2018-06-09 15:49] VITALS: BP 120/71
== END 2018-06-09 16:16 | disposition home or self-care (01) | DRG 166 ==
LOC: RAD 10:53 → 3W 12:04 → SICU 06-05 16:55 → ENTRNSPT 06-09 15:42 → EDTRNSPTSTS 06-09 16:01 → SICU 06-09 16:16
PROVIDERS: Internal Medicine Pulmonary Disease; Nurse Practitioner
PROC: 0B9J8ZX Drainage of Left Lower Lung Lobe, Via Natural or Artificial Opening Endoscopic, Diagnostic (ICD-10-PCS; principal; 2018-06-01)
DX: J18.9 Pneumonia, unspecified organism (principal); E43 Unspecified severe protein-calorie malnutrition; C34.90 Malignant neoplasm of unspecified part of unspecified bronchus or lung; J96.11 Chronic respiratory failure with hypoxia; J44.9 Chronic obstructive pulmonary disease, unspecified; E11.9 Type 2 diabetes mellitus without complications; F32.9 Major depressive disorder, single episode, unspecified; E03.9 Hypothyroidism, unspecified; M19.90 Unspecified osteoarthritis, unspecified site; F17.210 Nicotine dependence, cigarettes, uncomplicated; Z60.2 Problems related to living alone; K59.09 Other constipation; Z86.711 Personal history of pulmonary embolism; Z80.8 Family history of malignant neoplasm of other organs or systems; Z82.49 Family history of ischemic heart disease and other diseases of the circulatory system; Z79.899 Other long term (current) drug therapy; Z91.012 Allergy to eggs; Z82.5 Family history of asthma and other chronic lower respiratory diseases; Z68.27 Body mass index [BMI] 27.0-27.9, adult
CPT/HCPCS: 10879; 15002

== ENCOUNTER 2018-07-28 16:29 | Inpatient (IN) | payer OTHER ==
[~2018-07-28] VITALS: Ht 154.9 cm; Wt 65.9 kg
--- NOTE | ~2018-07-28 | EKG ---
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 : 1950 Requested By: Mickey Rabago Order Number: [id number] MD: Yuri Abdullahi Measurements Intervals [place] Rate: 173 P: DC: QRS: 18 QRSD: 56 T: QT: 245 QTc: 416 Interpretive Statements Atrial fibrillation with rapid V-rate Ventricular premature complex Repolarization abnormality, prob rate related Compared to ECG 07/25/2017 16:38:55 Ventricular premature complex(es) now present Early repolarization now present Sinus rhythm no longer present Poor R-wave progression no longer present Electronically Signed On 08-01-2018 10:15:32 CDT by Yuri Abdullahi [email or web address] <ELECTRONICALLY SIGNED> By: Yuri Abdullahi MD 08/01/18 1015 2 2 Yuri Abdullahi MD /EPI
--- NOTE | ~2018-07-28 | HC ---
[facility] [place] [address] CONSULTATION Name: MALICK PEARL Room #: 227-P ADM IN M.R.#: [id number] Admission: 07/28/18 Attend Phys: Mickey Rabago MD Discharge: Date of : 52 Report #: [id number] THIS REPORT FOR: //name// CC: Maria Whelan MD REQUESTING PHYSICIAN: Dr. Whelan. CHIEF COMPLAINT: Lung cancer with recurrence. 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 According to Dr. Whelan, in November, she had progressive disease on the left. Biopsy showed squamous on the contralateral side. She completed radiation therapy in 01/2017, all of 2017 had progressive disease with extension of lung mass. PET scan in 03/2017 showed progression of left and right mass. CT scan yesterday showed progressive opacification of her left lung and appeared to have postobstructive pneumonia. She subsequently underwent bronchoscopy showing narrowed left lower lobe bronchus. Significant friability and inflammation was seen. The patient has had some difficulties, subsequently with shortness of breath and pain, which is her biggest concern at this time, although it is much better managed with 50 mcg of fentanyl patch and only required breakthrough IV bolus dose. Additionally, she has had much improvement in her dyspnea with steroids and also with more opiates at this time. The patient reports no nausea currently. She denies constipation, denies significant anxiety. She has had more difficulty with mobility than previous. Family is present for my interview. PAST MEDICAL HISTORY: Significant for bilateral squamous cell cancers. Also anemia, likely due to chronic blood loss, type 2 diabetes, COPD, history of DVTs, history of depression, history of hypothyroidism. MEDICATIONS: Currently on fentanyl, atenolol, aspirin, amiodarone, prednisone, levothyroxine, Protonix, Zosyn, Pulmicort, vancomycin, oxycodone, and Xanax. SOCIAL HISTORY: Does have tobacco use history. Has 2 sisters who are dual power of rug hooker hand. One is present on my interview. SURGICAL HISTORY: Tonsillectomy, right lung biopsy. REVIEW OF SYSTEMS: GENERAL: Has had weight loss. She has had altered attention. RESPIRATORY: Denies significant shortness of breath at this time with nasal [facility] [address] [place] [address] CONSULTATION Name: MALICK PEARL Room #: 227-P [facility] IN M.R.#: [id number] Admission: 07/28/18 Attend Phys: Mickey Rabago MD Discharge: Date of : 52 Report #: [id number] CARDIOVASCULAR: Denies chest pain. ABDOMEN: Denies nausea, vomiting, constipation or diarrhea. EXTREMITIES: Denies any focal pain. Does report diffuse weakness. PHYSICAL EXAMINATION: VITAL SIGNS: Temperature 36.7, pulse 77, respirations 20, blood pressure 121/64, 92% on nasal cannula. GENERAL: The patient is alert, at times, but attention level appears to be altered. She is in no acute distress. RESPIRATORY: Greatly diminished lung sounds, left side. She has no rhonchi, no significant rales. ABDOMEN: Soft, no tenderness to palpation. Positive bowel sounds were noted, but diminished. CARDIOVASCULAR: Regular rate and rhythm without murmur. ASSESSMENT AND PLAN: 1. Lung cancer, concern that this may be stage IV process considering Dr. Whelan's recent notes. She has a postobstructive pneumonia. It appears that at this point in time, she may be amenable to palliative care, although she has delirium present at this point has difficulty making decisions for herself. At beginning of discussion with one sister, they would like to have a larger family meeting tomorrow, which I am planning on having at noon. I did spend approximately 30 minutes in discussion of advanced care planning and discussion of what their plan was further. At this point in time, they were pursuing fci versus long-term care. They have applied for Medicaid. The patient appears to be well controlled on symptom management, does not appear to have pain, hunger, nausea, constipation or any other concerning symptoms at this time. She is of course more somnolent, but anticipate this with achieving the level of control that she has at this point. I agree with current medical care. 2. Acute respiratory failure on chronic hypoxic respiratory failure. Appreciate pulmonology's input, appears to be improved overall from a pulmonary standpoint. 3. Postobstructive pneumonia. Again appreciate primary team's management. At this current point in time, she may have difficulty maintaining the ability to pursue therapy. I do appreciate Dr. Whelan overall evaluation and at this time, I believe it is appropriate for her to pursue an inpatient hospice stay though long-term care with hospice is another possibility. i will discuss this further with family tomorrow at noon to see if there are any further decisions with regards to this. Thank you very much for the consultation. We will follow up tomorrow. By: [id number] Luis Dias DO /ashley
--- NOTE | ~2018-07-28 | HC ---
[facility] [place] [address] CONSULTATION Name: DAEMALICK Room #: 219-P ADM IN M.R.#: [id number] Admission: 07/28/18 Attend Phys: Mickey Rabago MD Discharge: Date of : 52 Report #: [id number] THIS REPORT FOR: //name// CC: Maria Rabago DATE OF SERVICE: 08/01/2018 INDICATION: Atrial fibrillation. HISTORY OF PRESENT ILLNESS: This is an unfortunate 68-year-old female with history of lung cancer, COPD, pneumothorax who was admitted several days ago for respiratory failure. A CT scan revealed complete obstruction of the left main stem bronchus with subsequent collapse/infiltrate/consolidation of the left lung. The patient has a history of metastatic squamous cell carcinoma, initially diagnosed in 2013. She underwent radiation therapy and then was found to have extension into the left lung, undergoing further radiation therapy. She has had progression into the pleural space and chest wall and mediastinum. She did undergo a bronchoscopy during this admission. Today, the rhythm changed from sinus to rapid atrial fibrillation. She feels uncomfortable, but denies any change in her respiratory pattern. There is no history of fever or chest pain. PAST MEDICAL HISTORY: Squamous cell carcinoma of the lung, status post radiation therapy and chemotherapy. History of chronic obstructive pulmonary disease. History of diabetes mellitus. History of hypothyroidism. ALLERGIES: No known drug allergies. MEDICATIONS: See the MAR for full listing. SOCIAL HISTORY: Light tobacco use. FAMILY HISTORY: Negative for premature CAD. REVIEW OF SYSTEMS: A full 10-point review of systems performed. Only the pertinent positives and negatives are described in the HPI. PHYSICAL EXAMINATION: VITAL SIGNS: Blood pressure is 130/60, heart rate is 160 beats per minute. GENERAL APPEARANCE: An elderly appearing female, in mild distress. HEENT: Normocephalic, atraumatic. NECK: Supple. LUNGS: Diminished breath sounds on the left, few wheezing and rhonchi on the right base. [facility] [address] [place] [address] CONSULTATION Name: HOMERMALICK Room #: 219-[facility] IN M.R.#: [id number] Admission: 07/28/18 Attend Phys: Mickey Rabago MD Discharge: Date of : 52 Report #: [id number] CARDIAC: Tachycardic. S1, S2 positive. ABDOMEN: Soft, nontender. EXTREMITIES: No cyanosis, no edema. ECG reveals atrial fibrillation with rapid ventricular rate. LABORATORY VALUES: Hemoglobin is 8.2 at baseline. Creatinine is 0.7. ASSESSMENT AND PLAN: 1. Atrial fibrillation with a rapid ventricular rate, probably attributed to underlying pulmonary disease/hypoxia. Presently on IV Cardizem with fast heart rates. We will add beta yue to her regimen. If heart rate is still uncontrolled, she may require amiodarone therapy. She will be scheduled for an echocardiogram. Consider anticoagulation therapy in view of her elevated CHADS score. However, she does have a lung mass, would clear with pulmonary first before starting. 2. Squamous cell lung cancer, as per Oncology. 3. Chronic obstructive pulmonary disease/pneumonia, continue with antibiotics. As per Pulmonary. 4. Anemia. <ELECTRONICALLY SIGNED> By: Yuri Abdullahi MD 08/01/18 2144 1023 1323 Yuri Abdullahi MD /nt
--- NOTE | ~2018-07-28 | 2DMMODE ---
[facility] [address] [place] [address] 2 D/M-MODE ECHOCARDIOGRAM Name: DAEMALICK MITCHELL Room #: 219-P ADM IN M.R.#: [id number] Admission: 07/28/18 Attend Phys: Mickey Rabago, Discharge: Date of : 52 Date of Service: 08/02/18 0907 Report #: [id number] THIS REPORT FOR: //name// APPROVED REPORT Study performed: 08/02/2018 08:20:10 EXAM: Comprehensive 2D, Doppler, and color-flow Echocardiogram Patient Location: Echo lab Room #: 219 Status: routine BSA: 1.66 HR: 63 bpm BP: 130/62 mmHg Rhythm: NSR/Arrhythmia Other Information Study Quality: Good Indications Atrial fibrillation. Hx: PE, COPD, lung cancer 2D Dimensions RVDd: 36.50 mm LVEF(%): 64.59 (>50%) IVSd: 11.04 (7-11mm) LVOT Diam: 21.11 (18-24mm) LVDd: 50.23 mm PWd: 9.69 (7-11mm) Ascending Ao: 35.87 (22-36mm) LVDs: 32.43 (25-40mm) Aortic Root: 32.92 mm Paris's LVEF: 64.59 % Volumes Left Atrial Volume (Systole) Single Plane 4CH: 45.61 mL Single Plane 2CH: 55.45 mL LA ESV Index: 32.00 mL/m2 Aortic Valve AoV Peak Walt.: 1.79 m/s AO Peak Gr.: 12.78 mmHg LVOT Max P.25 mmHg LVOT Max V: 1.15 m/s ANDREW Vmax: 2.24 cm2 Mitral Valve E/A Ratio: 0.9 MV Decel. Time: 256.34 ms [facility] [place] [address] 2 D/M-MODE ECHOCARDIOGRAM Name: MALICK PEARL Room #: 219-P [facility] IN .R.#: [id number] Admission: 07/28/18 Attend Phys: Mickey Rabago, Discharge: Date of : 52 Date of Service: 08/02/18 0907 Report #: [id number] MV E Max Walt.: 1.02 m/s MV A Walt.: 1.12 m/s MV PHT: 74.34 ms IVRT: 78.43 ms Pulmonary Valve PV Peak Walt.: 1.13 m/s PV Peak Gr.: 5.13 mmHg Pulmonary Vein P Vein S: 1.02 m/s P Vein A: 0.33 m/s P Vein D: 0.63 m/s P Vein A Dur.: 138.4 msec P Vein S/D Ratio: 1.62 Tricuspid Valve TR Peak Walt.: 3.11 m/s RAP Estimate: 5.00 mmHg TR Peak Gr.: 38.57 mmHg PA Pressure: 44.00 mmHg Left Ventricle The left ventricle is normal size. There is normal LV segmental wall motion. There is normal left ventricular wall thickness. Left ventricular systolic function is normal. LVEF is 55-60%. Mild diastolic dysfunction is present (impaired relaxation pattern). Right Ventricle The right ventricle is normal size. The right ventricular systolic function is normal. Atria The left atrium size is normal. The right atrium size is normal. Aortic Valve Aortic valve leaflets are mildly thickened. Mild aortic regurgitation. There is no aortic valvular stenosis. Mitral Valve Mitral valve leaflets are mildly thickened. Moderate mitral annular calcification. Mild to moderate mitral regurgitation. No evidence of mitral valve stenosis. Tricuspid Valve The tricuspid valve is normal in structure. Mild tricuspid regurgitation. Estimated PAP is 45mmHg. [address] [address] 2 D/M-MODE ECHOCARDIOGRAM Name: MALICK PEARL Room #: 219-P [facility] IN [facility]#: [id number] Admission: 07/28/18 Attend Phys: Mickey Rabago, Discharge: Date of : 52 Date of Service: 08/02/18 0907 Report #: [id number] Pulmonic Valve The pulmonary valve is normal in structure. Mild pulmonic regurgitation. Great Vessels The aortic root is normal in size. The ascending aorta is normal in size. IVC is normal in size and collapses >50% with inspiration. Pericardium There is no pericardial effusion. Left pleural effusion noted. <Conclusion> The left ventricle is normal size. There is normal left ventricular wall thickness. Left ventricular systolic function is normal. Mild diastolic dysfunction is present (impaired relaxation pattern). The right ventricle is normal size. The left atrium size is normal. Mild aortic regurgitation. Mitral valve leaflets are mildly thickened. Moderate mitral annular calcification. Mild to moderate mitral regurgitation. Mild tricuspid regurgitation. Estimated PAP is 45mmHg. <ELECTRONICALLY SIGNED> By: Yuri Abdullahi MD 08/02/18906 6 6 Yuri Abdullahi MD /INF
--- NOTE | ~2018-07-28 | HC ---
[facility] [place] [address] CONSULTATION Name: MALICK PEARL Room #: 219-P ADM IN M.R.#: [id number] Admission: 07/28/18 Attend Phys: Mickey Rabago MD Discharge: Date of : 52 Report #: [id number] THIS REPORT FOR: //name// CC: Maria Rabago DATE OF SERVICE: 07/29/2018 ATTENDING PHYSICIAN: Mickey Rabago MD. REASON FOR CONSULTATION: Antibiotic management. HISTORY OF PRESENT ILLNESS: A 68-year-old white woman is admitted through the Emergency Room with increasing shortness of breath and found by chest x-ray and CT scan of the chest to have a complete collapse of the left lung. The patient is known to have carcinoma of the left lung. She was discharged from [facility] on 06/09/2018 and treatment with oral clindamycin and follow up with Oncology and Pulmonary services. The patient relates she has developed increasing shortness of breath and has run low grade fever up to 99.1 yesterday. PAST MEDICAL HISTORY: Stage 3-4 non-small cell lung cancer with local recurrence and complete atelectasis of the left lung. Diabetes mellitus. COPD. Hypothyroidism. Chronic respiratory insufficiency. Depression. OCD. Cigarette smoking. ALLERGIES: None listed. MEDICATIONS: The patient is on treatment with vancomycin 750 mg IV every 12 hours, Zosyn 3.375 grams IV every 8 hours. She is also on treatment with budesonide, Atrovent and albuterol inhalation treatments, senna docusate orally, guaifenesin, pantoprazole, levothyroxine, p.r.n. fentanyl, methylprednisolone 40 mg IV every 8 hours, p.r.n. hydrocodone, p.r.n. albuterol inhalation treatments, p.r.n. acetaminophen, and polyethylene glycol. She also receives p.r.n. ondansetron. SOCIAL HISTORY: See H and P, old records. FAMILY HISTORY: See H and P, old records. REVIEW OF SYSTEMS: As above and see H and P. PHYSICAL EXAMINATION: GENERAL: Chronically ill-appearing, not toxic looking woman. VITAL SIGNS: Temperature 97.9, pulse 87, respirations BP 114/49, height 5 feet 1 inch, weight [address] [address] CONSULTATION Name: MALICK PEARL Room #: 219-P [facility] IN M.R.#: [id number] Admission: 07/28/18 Attend Phys: Mickey Rabago MD Discharge: Date of : 52 Report #: [id number] HEENMT: Within range. NECK: Supple, no thyromegaly. CHEST: Revealed right infraclavicular Port-A-Cath. BREASTS: Deferred. LUNGS: Decreased breath sounds left lung. HEART: S1, S2. No gallop or murmur. ABDOMEN: Soft, no masses or megaly. PELVIC AND RECTAL: Deferred. EXTREMITIES: No clubbing or cyanosis. NEUROLOGIC: Grossly within normal limits. LABORATORY DATA: Sodium 134, potassium 3.6, BUN 7, creatinine 0.7, albumin 2.7 g/dL. NT-proBNP 861. WBC 6200, hemoglobin 8 g/dL, platelets 634,000. White blood cell count differential revealed 79% segmented neutrophils yesterday. ABGs on 07/28/2018 revealed pH 7.48, pCO2 32, pO2 59, bicarbonate 23.5, lactate 0.91, O2 saturation 90%. This set of gases on 3 liters oxygen nasal cannula. Blood cultures were obtained and they are negative so far. Sputum has been ordered and report pending of the specimen. RADIOLOGY EVALUATION: Chest x-ray revealed complete collapsed left lung. CT chest PE protocol revealed complete obstruction of the left main stem bronchus with atelectasis, collapsed left lung, possible left lung mass, hilar adenopathy. No evidence of pulmonary embolism. ASSESSMENT: 1. Non-small cell carcinoma of the lung with complete collapse of left lung, possible infiltrate pneumonia. 2. Respiratory insufficiency failure. 3. Diabetes mellitus. 4. Chronic obstructive pulmonary disease. 5. Hypothyroidism. SUGGESTIONS: Recommend proceed with bronchoscopy and continue coverage with vancomycin and Zosyn as you are already doing. Continue steroids. Dr. Rabago, thank you for requesting my suggestions in the care of your patient. <ELECTRONICALLY SIGNED> By: Gary Bowie MD 07/30/18 0840 1136 2215 Gary Bowie MD /nt
--- NOTE | ~2018-07-28 | HC ---
[facility] [place] [address] CONSULTATION Name: MALICK PEARL Room #: 219-P ADM IN M.R.#: [id number] Admission: 07/28/18 Attend Phys: Mickey Rabago MD Discharge: Date of : 52 Report #: [id number] THIS REPORT FOR: //name// CC: Maria Lyons DO, Dr. William Rabago MD HISTORY OF PRESENT ILLNESS: The patient is a 68-year-old female with a history of stage IIIB if not stage IV non-small cell squamous cell cancer from 2013 originally, had completed radiation therapy March of 2014. In November 2016, had progressive disease on the left. Biopsy showed squamous on the contralateral side, completed SBRT, January of 2017. fall, had progressive disease with extension of the left mass to the pleural surface. The patient had more progressive disease. PET scan in March 2017 showed progression of the left and right mass as well as perihilar and mediastinal lymph nodes. Her tumor had been negative for BRAF, ALK, ROS, EGFR in the past. She is also PD-L1 low expression. She began carboplatin, Gemzar 28-day cycle, 04/29/2018. She comes in having had to defer chemo for counts, but unfortunately CAT scan yesterday showed progressive opacification of the left lung. She describes been coughing quite a bit. Then, about 2 days, the coughing also stopped, but she also became more short of air. Was having low-grade fever at home 99.1. No nausea, no vomiting. No new arm or leg swelling. Appetite has been not quite as good. No blood in urine or stool. She also has a history of iron deficiency, received IV iron about 4 weeks ago. PAST MEDICAL HISTORY: Notable for the bilateral squamous cell cancers, most likely now at least stage III if not localized stage IV. She also has a history of iron deficiency anemia due to suspected chronic blood loss, also a fungal infection underneath the left breast, which is improved, diabetes mellitus type 2, COPD, history of blood clot in the past, history of depression, history of hypothyroidism. 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 I believe she is not nor does she have children. Does have a sister and a brother in the area if I recall correctly. MEDICATIONS: At this time in the hospital currently include vancomycin 750 mg IV q.12, Senokot-S 1 b.i.d., guaifenesin 600 b.i.d., pantoprazole 20 daily, levothyroxine 75 mcg daily, fentanyl 50 mcg IV p.r.n., methylprednisolone 40 q.8 IV, Zosyn 3.375 q.8, ipratropium and albuterol respiratory therapy q.4 p.r.n., Lortab p.r.n., albuterol respiratory p.r.n., Tylenol p.r.n., MiraLax p.r.n., Zofran p.r.n. [address] [address] CONSULTATION Name: MALICK PEARL Room #: 219-P ADM IN M.R.#: [id number] Admission: 07/28/18 Attend Phys: Mickey Rabago MD Discharge: Date of : 52 Report #: [id number] PHYSICAL EXAMINATION: GENERAL: The patient appears her stated age. MOOD: She is alert and pleasant. LUNGS: She has been greatly diminished sounds in the left side. No rhonchi. Right has some fairly normal sounds with occasional soft rhonchi. LYMPHATICS: No enlarged lymph nodes in the supraclavicular, cervical, axillary or inguinal region. ABDOMEN: Scaphoid, slightly obese, no masses. EXTREMITIES: Without clubbing, cyanosis. VITAL SIGNS: Height is 5 feet 1 inch, weight 137 pounds, it is also 155 cm or 62 kilograms. Recent blood pressure is 114/49, temperature 97.9, pulse 87, O2 is about 93 on 4 liters. ASSESSMENT AND PLAN: 1. Stage III if not probable stage IV marker negative squamous cell cancer, now appears to be progressing on carboplatin, Gemzar. We will consider other therapies and may consider PET scan as outpatient if she wishes to continue therapy. 2. Shortness of air possibly due to central obstruction. I talked with Dr. Troncoso, he may consider bronchoscopy to make sure there is not mucus plugging given the sudden change in her breathing. In the meantime, continue antibiotics and aerosols and steroids for chronic obstructive pulmonary disease as well as pneumonitis. 3. Left chest wall pain from fungal infection, improved with Lotrimin. 4. Diabetes mellitus type 2. Continues oral agents and diet changes. 5. Hypothyroid, replace. 6. Iron deficiency, received iron. We will follow anemia. <ELECTRONICALLY SIGNED> By: Jovany Whelan MD 07/30/18713 6 17 Jovany Whelan MD /nt
[~2018-07-28 16:29] MED LIST changes: +CLEOCIN HCL150 MG PO; +GLUCOPHAGE XR500 MG PO; +MIRALAX17 GM PO; +SENNA-TIME S T1 EACH PO
[2018-07-28 16:30] VITALS: BP 106/56
[2018-07-28 16:59] LABS: BE(vivo) 0.4 mmol/L (-2 to +3); HCO3 23.5 mmol/L (22.0-26.0); PO2 59.5 mmHg (80.0-100.0); pH 7.483 (7.360-7.450); sO2 92.8 % (92.0-98.0)
[2018-07-28 17:35] LABS: HEMATOCRIT 25.4 % (37.0-47.0); HEMOGLOBIN 8.5 gm/dL (12.0-15.0); MCH 27.4 pg (26.0-34.0); MCHC 33.4 g/dL (28.0-37.0); MCV 82.1 fL (80.0-100.0); PLATELET COUNT 657 thou/uL (150-400); RBC 3.09 mil/uL (4.20-5.00); RDW 20.9 % (10.5-14.5); WBC 7.4 thou/uL (4.0-11.0)
[2018-07-28 17:44] LABS: ANION GAP 8 mmol/L (7-16); BUN 6 mg/dL (7-18); CALCIUM 9.6 mg/dL (8.5-10.1); CHLORIDE 92 mmol/L (98-107); CO2 30 mmol/L (21-32); CREATININE 0.7 mg/dL (0.6-1.0); GLUCOSE 115 mg/dL (74-106); POTASSIUM 3.5 mmol/L (3.5-5.1); SODIUM 130 mmol/L (136-145)
[2018-07-28 17:52] LABS: ALBUMIN 2.7 g/dL (3.4-5.0); SGOT 24 U/L (15-37); SGPT 36 U/L (30-65); TOTAL BILIRUBIN 0.3 mg/dL (<0.1-1.0); TROPONIN-I <0.06 ng/mL (<0.06)
[2018-07-28 18:24] LABS: ABSOLUTE NEUTROPHILS 5.8 thou/uL (1.4-8.2)
[2018-07-28 18:25] LABS: ANISOCYTOSIS 2+; HYPOCHROMASIA 1+
[2018-07-28 18:26] LABS: OVALOCYTES OCCASIONAL
[2018-07-28 20:35] VITALS: BP 117/69
[2018-07-29 03:02] LABS: HEMATOCRIT 24.7 % (37.0-47.0); MCH 26.5 pg (26.0-34.0); MCHC 32.2 g/dL (28.0-37.0); MCV 82.3 fL (80.0-100.0); RDW 21.2 % (10.5-14.5); WBC 6.2 thou/uL (4.0-11.0)
[2018-07-29 03:09] LABS: CALCIUM 9.1 mg/dL (8.5-10.1); CREATININE 0.7 mg/dL (0.6-1.0); POTASSIUM 3.6 mmol/L (3.5-5.1)
[2018-07-29 04:23] VITALS: BP 96/59
[2018-07-29 08:10] VITALS: BP 114/49
[2018-07-29 11:37] VITALS: BP 108/60
[2018-07-29 15:23] VITALS: BP 113/61
[2018-07-29 19:31] VITALS: BP 107/46
[2018-07-30 05:17] VITALS: BP 116/49
[2018-07-30 08:34] VITALS: BP 105/43
[2018-07-30 11:33] VITALS: BP 119/63
[2018-07-30 14:56] VITALS: BP 115/63
[2018-07-30 19:16] VITALS: BP 113/47
[2018-07-31 04:59] VITALS: BP 119/57
[2018-07-31 06:00] LABS: ABSOLUTE RETIC COUNT 0.0839 10^6/uL; OBSERVED RETIC COUNT 3.1 % (0.6-2.6)
[2018-07-31 06:10] LABS: % SATURATION 35 % (20-39); IRON 46 ug/dL (50-170); TIBC 130 ug/dL (250-450)
[2018-07-31 07:00] VITALS: BP 125/57
[2018-07-31 11:23] VITALS: BP 121/57
[2018-07-31 16:03] VITALS: BP 126/63
[2018-07-31 20:09] VITALS: BP 146/69
[2018-08-01 05:36] VITALS: BP 129/63
[2018-08-01 07:54] VITALS: BP 132/63
[2018-08-01 08:46] LABS: HEMATOCRIT 26.9 % (37.0-47.0); HEMOGLOBIN 8.2 gm/dL (12.0-15.0); MCH 25.8 pg (26.0-34.0); MCHC 30.5 g/dL (28.0-37.0); MCV 84.5 fL (80.0-100.0); PLATELET COUNT 508 thou/uL (150-400); RBC 3.19 mil/uL (4.20-5.00); RDW 21.6 % (10.5-14.5); WBC 13.2 thou/uL (4.0-11.0)
[2018-08-01 08:52] VITALS: BP 133/67
[2018-08-01 09:01] LABS: ALBUMIN 2.7 g/dL (3.4-5.0); CALCIUM 9.4 mg/dL (8.5-10.1); CREATININE 0.7 mg/dL (0.6-1.0); POTASSIUM 3.5 mmol/L (3.5-5.1); TOTAL BILIRUBIN 0.2 mg/dL (<0.1-1.0); TOTAL PROTEIN 6.7 g/dL (6.4-8.2)
[2018-08-01 09:11] LABS: BE(vivo) 9.9 mmol/L (-2 to +3); HCO3 36.6 mmol/L (22.0-26.0); PCO2 63.6 mmHg (35.0-45.0); PO2 85.4 mmHg (80.0-100.0); pH 7.378 (7.360-7.450)
[2018-08-01 10:21] LABS: ABSOLUTE NEUTROPHILS 11.5 thou/uL (1.4-8.2); METAMYELOCYTES 1 %
[2018-08-01 10:22] LABS: ANISOCYTOSIS 2+; HYPOCHROMASIA 1+; POLYCHROMASIA OCCASIONAL
[2018-08-01 15:42] VITALS: BP 135/72
[2018-08-01 20:34] VITALS: BP 109/67
[2018-08-02 03:42] VITALS: BP 130/62
[2018-08-02 10:54] VITALS: BP 117/53
[2018-08-02 14:55] VITALS: BP 114/52
[2018-08-02 19:22] VITALS: BP 111/61
[2018-08-03 03:49] VITALS: BP 120/75
[2018-08-03 08:12] VITALS: BP 132/76
[2018-08-03 11:45] VITALS: BP 121/64
[2018-08-03 16:23] VITALS: BP 122/58
[2018-08-03 20:59] VITALS: BP 120/58
[2018-08-04 07:51] VITALS: BP 106/52
[2018-08-04 20:00] VITALS: BP 112/57
[2018-08-05 08:06] VITALS: BP 91/50
[2018-08-05] MEDS ORDERED: AUGMENTIN 500-1 EACH PO (08:47)
[2018-08-05] MEDS ORDERED: ATENOLOL 25 MG25 M1 PO (08:48)
[2018-08-05] MEDS ORDERED: FENTANYL1 EAC1 TRANSDERM (08:48)
[2018-08-05] MEDS ORDERED: OXYCODONE HCL10 MG PO (08:48)
[2018-08-05] MEDS ORDERED: ALPRAZOLAM 0.50.5 M1 PO (08:48)
[2018-08-05] MEDS ORDERED: PACERONE 200 M200 M1 PO (08:48)
[2018-08-05] MEDS ORDERED: ASPIRIN325 PO (08:48)
== END 2018-08-05 11:51 | disposition hospice, home (50) | DRG 871 ==
LOC: ER 16:29 → 2N 19:00 → EROBS 19:00 → 2N 20:32 → SICU 08-03 18:19
PROVIDERS: Internal Medicine; Nurse Practitioner Family; Physician Assistant; Specialist
PROC: 0BD78ZX Extraction of Left Main Bronchus, Via Natural or Artificial Opening Endoscopic, Diagnostic (ICD-10-PCS; principal; 2018-07-28)
DX: A41.9 Sepsis, unspecified organism (principal); J96.21 Acute and chronic respiratory failure with hypoxia; J18.9 Pneumonia, unspecified organism; C34.02 Malignant neoplasm of left main bronchus; E87.1 Hypo-osmolality and hyponatremia; J44.0 Chronic obstructive pulmonary disease with (acute) lower respiratory infection; B49 Unspecified mycosis; J98.19 Other pulmonary collapse; J98.11 Atelectasis; E46 Unspecified protein-calorie malnutrition; E03.9 Hypothyroidism, unspecified; F32.9 Major depressive disorder, single episode, unspecified; D47.3 Essential (hemorrhagic) thrombocythemia; D50.9 Iron deficiency anemia, unspecified; E11.9 Type 2 diabetes mellitus without complications; K59.09 Other constipation; F42.9 Obsessive-compulsive disorder, unspecified; M62.84 Sarcopenia; G89.29 Other chronic pain; I48.91 Unspecified atrial fibrillation; E55.9 Vitamin D deficiency, unspecified; Z68.27 Body mass index [BMI] 27.0-27.9, adult; Z92.21 Personal history of antineoplastic chemotherapy; Z99.81 Dependence on supplemental oxygen; Z92.3 Personal history of irradiation; Z87.891 Personal history of nicotine dependence; Z86.711 Personal history of pulmonary embolism; Z79.84 Long term (current) use of oral hypoglycemic drugs; Z79.899 Other long term (current) drug therapy; Z91.012 Allergy to eggs; Z82.5 Family history of asthma and other chronic lower respiratory diseases; Z80.8 Family history of malignant neoplasm of other organs or systems
CPT/HCPCS: 10081; 15002